=== PATIENT | male | born 1990 | race Caucasian/White ===

== ENCOUNTER → 2021-08-22 | Outpatient (CLI) | payer OTHER ==
[~2021-08-22] MED LIST: ALBU90OI INH; ALBU90OI61 INH; CLIN300 PO; HYDACE5 PO; TAMS.4ER PO; Zofran Odt4 MG SL
== END | disposition home or self-care (01) ==
LOC: LAB SHORT 10:40 → LAB 10:40
DX: Z30.8 Encounter for other contraceptive management (principal)